=== PATIENT | female | born 1975 | race Caucasian/White ===

== ENCOUNTER 2017-04-23 17:05 | Emergency (ER) | payer SELFPAY ==
[~2017-04-23] VITALS: Ht 165.1 cm; Wt 70.0 kg
[2017-04-23] MEDS ORDERED: KETOROLAC 30MG/ML VIAL IV STA (22:36)
[2017-04-23] MEDS ORDERED: FAMOTIDINE 20MG/2ML VIAL IV STA (22:36)
[2017-04-23] MEDS ORDERED: SODIUM CHLORIDE 0.9% 1,000 ML IV ONE (22:36)
[2017-04-23] MEDS ORDERED: ONDANSETRON 4MG ODT PO STA (22:36)
[2017-04-23] MEDS ORDERED: IBUPROFEN 600MG TABLET PO ONE (22:45)
[2017-04-23 23:00] LABS: BASOPHILS % 0.3 % (0.0-2.0); EOSINOPHILS % 0.7 % (0.0-5.0); HEMATOCRIT. 40.8 % (36.0-48.0); HEMOGLOBIN. 13.8 g/dL (12.0-16.0); LYMPHOCYTES % 21.7 % (20.0-50.0); MEAN CORPUSCULAR HEMOGLOBIN 29.1 pg (28.0-32.0); MEAN PLATELET VOLUME 7.5 fl (7.4-10.4); MONOCYTES % 7.8 % (2.0-8.0); NEUTROPHILS % 69.5 % (40.0-76.0); PLATELET 283 x1000/uL (130-400); RED BLOOD CELL COUNT 4.75 mill/uL (4.2-5.4); RED CELL DISTRIBUTION WIDTH 14.3 % (11.6-14.6)
[2017-04-23 23:04] VITALS: BP 128/72
[2017-04-23 23:05] LABS: PROTHROMBIN TIME 10.7 sec (9.4-11.6)
[2017-04-23 23:05] LABS: CLARITY URINE CLEAR (CLEAR); COLOR URINE YELLOW (YELLOW); KETONES URINE NEGATIVE (NEGATIVE); LEUKOCYTE ESTERASE URINE NEGATIVE (NEGATIVE); NITRITE URINE NEGATIVE (NEGATIVE); OCCULT BLOOD URINE 1+ (NEGATIVE); PH URINE 5.5 (4.5-8.0); PROTEIN URINE 1+ (NEGATIVE); SPECIFIC GRAVITY URINE 1.029 (1.005-1.030)
[2017-04-23 23:09] LABS: CARBON DIOXIDE 26 mEq/L (21-32); CHLORIDE 106 mEq/L (98-107)
[2017-04-24] MEDS ORDERED: POTASSIUM CHLORIDE 20MEQ TABLET SR PO ONE (02:00)
== END 2017-04-24 02:44 | disposition home or self-care (01) ==
LOC: ER 17:05
DX: K52.9 Noninfective gastroenteritis and colitis, unspecified (principal); R31.9 Hematuria, unspecified; K92.0 Hematemesis; E87.6 Hypokalemia
CPT/HCPCS: 36415; 71010; 74176; 80053; 81001; 81025; 83690; 85025; 85610; 96374; 96375; 99285; J1885; J3490; J7030; Q0162; Z7610